=== PATIENT | female | born 1970 | race Caucasian/White ===

== ENCOUNTER 2018-07-26 08:36 | Emergency (ER) | payer BC ==
--- NOTE | 2018-07-26 09:21 | ER Document Report ---
ED General - General Chief Complaint: Breathing Difficulty Stated Complaint: DIFFICULTY BREATHING Time Seen by Provider: 07/26/18 09:03 TRAVEL OUTSIDE OF THE [place] IN LAST 30 DAYS: No - HPI Onset: Other - 6 days Onset/Duration: Gradual, Constant Quality of pain: No pain Associated symptoms: Shortness of breath, Sweating Exacerbated by: Movement, Walking Relieved by: Sitting Similar symptoms previously: No Notes: Patient is a 48-year-old female that presents to the emergency department for chief complaint of diaphoresis and shortness of breath. She reports increased episodes of shortness of breath and sweating over the last 5-6 days. She states when she gets up and walks around even with minimal exertion she begins sweating to the point where she is soaking her hair and clothing. She also feels short of breath. Her symptoms improved quickly with rest. She denies any chest pain but does state when she feels short of breath it feels heaviness in her chest. She has no history of cardiac disease but her father did have an PA in his 50s. Her mother has a history of strokes. She denies any recent surgery, travel, immobilization, personal or family history of blood clots. She has not taken an aspirin today. She has never had a stress test. Past Medical History: Hypertension Past Surgical History: Negative Social History: Denies drugs alcohol and tobacco Family History: Reviewed and noncontributory for presenting illness Allergies: Reviewed, see documented allergy list. REVIEW OF SYSTEMS: CONSTITUTIONAL : No fever No chills diaphoresis No recent illness EENT: No vision changes No congestion No sore throat CARDIOVASCULAR: No chest pain No palpitations RESPIRATORY: shortness of breath No cough No difficulty breathing GASTROINTESTINAL: No abdominal pain No nausea No vomiting No diarrhea GENITOURINARY: No dysuria No hematuria No difficulty urinating MUSCULOSKELETAL: No back pain No leg pain No arm pain SKIN: No rashes No lesions LYMPHATIC: No swollen, enlarged glands. NEUROLOGICAL: No lightheadedness No headache No weakness No paresthesias PSYCHIATRIC: No anxiety No depression PHYSICAL EXAMINATION: Vital signs reviewed, nursing noted reviewed. GENERAL: Diaphoretic, nontoxic, mild distress HEAD: Atraumatic, normocephalic. EYES: Eyes appear normal, extraocular movements intact, sclera anicteric, conjunctiva are normal. ENT: nares patent, oropharynx clear without exudates. Moist mucous membranes. NECK: Normal range of motion, supple without lymphadenopathy LUNGS: Breath sounds clear to auscultation bilaterally and equal. No wheezes rales or rhonchi. HEART: Regular rate and rhythm without murmurs. +2/4 bilateral radial pulses ABDOMEN: Soft, nontender, normoactive bowel sounds. No rebound, guarding, or rigidity. No masses appreciated. EXTREMITIES: Nontender, good range of motion, no pitting or edema. NEUROLOGICAL: No focal neurological deficits. Moves all extremities spontaneously Motor and sensory grossly intact on exam. PSYCH: Tearful, normal affect. SKIN: Warm, Dry, normal turgor, no rashes or lesions noted on exposed skin - Related Data Allergies/Adverse Reactions: No Known Allergies Allergy (Verified 07/26/18 08:38) Past Medical History - Social History Smoking Status: Never Smoker Chew tobacco use (# tins/day): No Frequency of alcohol use: None Drug Abuse: None Family History: Other - Kidney stone Patient has suicidal ideation: No Patient has homicidal ideation: No - Past Medical History Cardiac Medical History: Reports: Hx Hypertension Pulmonary Medical History: Reports: Hx Pneumonia Renal/ Medical History: Denies: Hx Peritoneal Dialysis Psychiatric Medical History: Reports: Hx Anxiety, Hx Depression - anxiety - Immunizations Hx Diphtheria, Pertussis, Tetanus Vaccination: Yes Review of Systems - Review of Systems Notes: Dictated Physical Exam - Vital signs Vitals: Temp Pulse Resp BP Pulse Ox 98.0 F 93 20 150/95 H 99 07/26/18 08:42 07/26/18 08:42 07/26/18 08:42 07/26/18 08:42 07/26/18 08:42 - Notes Notes: Dictated Course - Re-evaluation Re-evalutation: 07/26/18 09:20 Vitals reviewed. Nursing notes reviewed. Patient is tearful in the room and states it is because she is sleep deprived and is scared that something may be going on. She denies any pain currently. 07/26/18 12:12 Patient reevaluated. She is no longer diaphoretic. She is resting comfortably and asymptomatic. Her EKG shows no acute ischemia or dysrhythmia. Patient's d- dimer was elevated however CT angios shows no pulmonary embolism or aortic dissection. The remainder of her workup including her troponin is negative. Patient did not have any chest pain but her symptoms were concerning for anginal equivalent. I did offer patient a delta troponin which she has declined. She understands the symptoms she is having may be related to strain on her heart and she will follow with her primary care doctor in the office in the next 1-2 days. I advised her to get a stress test done in the next week. She will return for any new or worsening symptoms. Discharged home in stable condition. Laboratory 07/26/18 07/26/18 07/26/18 09:46 09:46 09:46 WBC 6.6 RBC 5.35 H Hgb 15.5 Hct 45.1 MCV 84 MCH 29.0 MCHC 34.5 RDW 13.6 Plt Count 444 Seg Neutrophils % 51.9 Lymphocytes % 33.6 Monocytes % 11.0 Eosinophils % 2.7 Basophils % 0.8 Absolute Neutrophils 3.4 Absolute Lymphocytes 2.2 Absolute Monocytes 0.7 Absolute Eosinophils 0.2 Absolute Basophils 0.1 D-Dimer 0.53 H Sodium Cancelled Potassium Cancelled Chloride Cancelled Carbon Dioxide Cancelled Anion Gap Cancelled BUN Cancelled Creatinine Cancelled Est GFR ( Amer) Cancelled Est GFR (Non-Af Amer) Cancelled Glucose Cancelled Calcium Cancelled Troponin I 07/26/18 07/26/18 07/26/18 09:46 10:43 10:43 WBC RBC Hgb Hct MCV MCH MCHC RDW Plt Count Seg Neutrophils % Lymphocytes % Monocytes % Eosinophils % Basophils % Absolute Neutrophils Absolute Lymphocytes Absolute Monocytes Absolute Eosinophils Absolute Basophils D-Dimer Sodium 142.9 Potassium 4.2 Chloride 101 Carbon Dioxide 32 H Anion Gap 10 BUN 14 Creatinine 0.76 Est GFR ( Amer) > 60 Est GFR (Non-Af Amer) > 60 Glucose 98 Calcium 9.4 Troponin I Cancelled < 0.012 Chest X-Ray 07/26/18 09:17 IMPRESSION: NO ACUTE RADIOGRAPHIC FINDING IN THE CHEST. Chest/Abdomen CTA 07/26/18 10:35 IMPRESSION: NORMAL CTA OF THE CHEST. NO PULMONARY EMBOLI. - Vital Signs Vital signs: Temp Pulse Resp BP Pulse Ox 98.0 F 93 20 150/95 H 99 07/26/18 08:42 07/26/18 08:42 07/26/18 08:42 07/26/18 08:42 07/26/18 08:42 - Laboratory Result Diagrams: 07/26/18 09:46 07/26/18 10:43 Laboratory results interpreted by me: 07/26/18 07/26/18 07/26/18 09:46 09:46 10:43 RBC 5.35 H D-Dimer 0.53 H Carbon Dioxide 32 H - EKG Interpretation by Me Additional EKG results interpreted by me: 07/26/18 10:13 Interpreted by myself 0 924: Normal sinus rhythm, rate 85, normal axis, no ectopy, no ST elevation, diffuse T wave flattening with T wave inversion lead III Discharge - Discharge Clinical Impression: Shortness of breath, Diaphoresis Condition: Stable Disposition: HOME, SELF-CARE Instructions: Chest Pain of Unclear Cause ([facility]) Additional Instructions: Please return to the emergency department if you have any worsening, or concern of your symptoms. Please return to the emergency department if you develop chest pain, difficulty breathing, severe abdominal pain, or ongoing vomiting. Please follow-up with your primary care physician in 1-2 days and any other recommended physicians. If prescribed, take all medications as directed. If you have any questions or concerns do not hesitate to return the emergency department for evaluation. See your primary care doctor in the next 1-2 days and ask for a stress test. Return to the emergency room at any time for reevaluation Referrals: TOBY HELM MD [Primary Care Provider] - Follow up in 3-5 days
--- NOTE | 2018-07-26 10:07 | RADIOLOGY REPORT (SQ) ---
EXAM DESCRIPTION: CHEST SINGLE VIEW COMPLETED DATE/TIME: 07/26/2018 9:49 am REASON FOR STUDY: cough COMPARISON: December 2015 EXAM PARAMETERS: NUMBER OF VIEWS: One view. TECHNIQUE: Single frontal radiographic view of the chest acquired. RADIATION DOSE: NA LIMITATIONS: None. FINDINGS: LUNGS AND PLEURA: No opacities, masses or pneumothorax. No pleural effusion. MEDIASTINUM AND HILAR STRUCTURES: No masses. Contour normal. HEART AND VASCULAR STRUCTURES: Heart normal in size. Normal vasculature. BONES: No acute findings. HARDWARE: None in the chest. OTHER: No other significant finding. IMPRESSION: NO ACUTE RADIOGRAPHIC FINDING IN THE CHEST. TECHNICAL DOCUMENTATION: JOB ID: [id number] [employer]- All Rights Reserved Reading location - IP/workstation name: [email or web address]
[2018-07-26 10:12] LABS: ABSOLUTE BASOPHILS # (AUTO) 0.1 10^3/uL (0.0-0.2); ABSOLUTE EOSINOPHILS # (AUTO) 0.2 10^3/uL (0.0-0.6); ABSOLUTE LYMPHOCYTES (AUTO) 2.2 10^3/uL (0.5-4.7); ABSOLUTE MONOCYTES (AUTO) 0.7 10^3/uL (0.1-1.4); ABSOLUTE NEUT (AUTO) 3.4 10^3/uL (1.7-8.2); BASOPHILS % (AUTO) 0.8 % (0-2); EOSINOPHILS % (AUTO) 2.7 % (0-6); HEMATOCRIT 45.1 % (36.0-47.0); HEMOGLOBIN 15.5 g/dL (12.0-15.5); LYMPHOCYTES % (AUTO) 33.6 % (13-45); MEAN CORPUSCULAR HGB CONC 34.5 g/dL (32.0-36.0); MEAN CORPUSCULAR VOLUME 84 fl (80-97); PLATELET COUNT 444 10^3/uL (150-450); RED BLOOD COUNT 5.35 10^6/uL (3.72-5.28); RED CELL DISTRIBUTION WIDTH 13.6 % (11.5-14.0); SEGMENTED NEUTROPHILS % (AUTO) 51.9 % (42-78); TOTAL CELLS COUNTED % (AUTO) 100 %; WHITE BLOOD COUNT 6.6 10^3/uL (4.0-10.5)
[2018-07-26 11:23] LABS: ANION GAP 10 (5-19); BLOOD UREA NITROGEN 14 mg/dL (7-20); CALCIUM 9.4 mg/dL (8.4-10.2); CARBON DIOXIDE 32 mmol/L (22-30); CHLORIDE 101 mmol/L (98-107); GLUCOSE 98 mg/dL (75-110); POTASSIUM 4.2 mmol/L (3.6-5.0); SODIUM 142.9 mmol/L (137-145)
--- NOTE | 2018-07-26 11:58 | RADIOLOGY REPORT (SQ) ---
EXAM DESCRIPTION: CTA CHEST COMPLETED DATE/TIME: 07/26/2018 11:43 am REASON FOR STUDY: PE study COMPARISON: Chest x-ray done earlier the same day. TECHNIQUE: CT scan of the chest performed using helical scanning technique with dynamic intravenous contrast injection. Images reviewed with lung, soft tissue and bone windows. Reconstructed coronal and sagittal MPR images reviewed. Additional 3 dimensional post-processing performed to develop Maximal Intensity Projection images (NM P). All images stored on PACS. All CT scanners at this facility use dose modulation, iterative reconstruction, and/or weight based d osing when appropriate to reduce radiation dose to as low as reasonably achievable (ALARA). [facility]: Dose Right [facility]: CareDose [facility]: Dose Right [facility]: Teradose 4D [facility]: [place] CONTRAST TYPE AND DOSE: contrast/concentration: Isovue 350.00 mg/ml; Total Contrast Delivered: 79.0 ml; Total Saline Delivered: 90.0 ml Contrast bolus optimized for the pulmonary arteries. Not diagnostic for the aorta. RENAL FUNCTION: BUN 14, creatinine 0.76 RADIATION DOSE: CT Rad equipment meets quality standard of care and radiation dose reduction techniq ues were employed. CTDIvol: 16.5 - 19.3 mGy. DLP: 705 mGy-cm. . LIMITATIONS: None. FINDINGS: LUNGS AND PLEURA: No masses, infiltrates, or pneumothorax. No pleural effusions or pleura l calcifications. AORTA AND GREAT VESSELS: No aneurysm. Contrast bolus not optimized for the aorta. HEART: No pericardial effusion. No significant coronary artery calcifications. PULMONARY ARTERIES: No emboli visualized in the main pulmonary arteries or the segmental branches. HILAR AND MEDIASTINAL STRUCTURES: No identified masses or abnormal nodes. HARDWARE: None in the chest. UPPER ABDOMEN: No significant findings. Limited exam. THYROID AND OTHER SOFT TISSUES: No masses. No adenopathy. BONES: No acute or significant finding. 3D MIPS: Confirm above findings. OTHER: No other significant finding. IMPRESSION: NORMAL CTA OF THE CHEST. NO PULMONARY EMBOLI. COMMENT: Quality ID # [id number]: Final reports with documentation of one or more dose reduction techniques (e.g., Automated exposure control, adjustment of the mA and/or kV according to patient size, use of iterative reconstruction technique) TECHNICAL DOCUMENTATION: JOB ID: [id number] [employer]- All Rights Reserved Reading location - IP/workstation name: [email or web address]
[2018-07-26 12:22] VITALS: BP 121/86
--- NOTE | 2018-07-26 13:22 | EKG REPORT ---
SEVERITY:- BORDERLINE ECG - SINUS RHYTHM BORDERLINE T ABNORMALITIES, INFERIOR LEADS : Confirmed by: Julio Cesar Parham MD 26-Jul-2018 13:21:37
== END 2018-07-26 12:22 | disposition home or self-care (01) ==
LOC: ER 08:36
DX: R06.02 Shortness of breath (principal); R61 Generalized hyperhidrosis; R09.89 Other specified symptoms and signs involving the circulatory and respiratory systems; I10 Essential (primary) hypertension; Z82.49 Family history of ischemic heart disease and other diseases of the circulatory system; Z82.3 Family history of stroke
CPT/HCPCS: 36415; 71045; 71275; 80048; 84484; 85025; 85379; 93005; 93010; 99285

== ENCOUNTER 2018-12-17 13:54 | Emergency (ER) | payer BC ==
--- NOTE | 2018-12-17 14:07 | ER Document Report ---
ED Medical Screen (RME) - General Chief Complaint: Flank Pain Stated Complaint: FLANK PAIN Time Seen by Provider: 12/17/18 14:05 Primary Care Provider: TOBY HELM MD [Primary Care Provider] - Follow up as needed Mode of Arrival: Ambulatory Information source: Patient TRAVEL OUTSIDE OF THE [place] IN LAST 30 DAYS: No - HPI Patient complains to provider of: R abd pain Onset: Yesterday - pt with onset of RUQ abd pain for the past 1-2 days. Worse today. - Related Data Allergies/Adverse Reactions: No Known Allergies Allergy (Verified 12/17/18 13:57) Past Medical History - Past Medical History Cardiac Medical History: Reports: Hx Hypertension Pulmonary Medical History: Reports: Hx Pneumonia Renal/ Medical History: Denies: Hx Peritoneal Dialysis Psychiatric Medical History: Reports: Hx Anxiety, Hx Depression - anxiety - Immunizations Hx Diphtheria, Pertussis, Tetanus Vaccination: Yes Physical Exam - Vital signs Vitals: Temp Pulse Resp BP Pulse Ox 98.4 F 83 16 158/104 H 95 12/17/18 13:59 12/17/18 13:59 12/17/18 13:59 12/17/18 13:59 12/17/18 13:59 Course - Vital Signs Vital signs: Temp Pulse Resp BP Pulse Ox 98.4 F 83 16 158/104 H 95 12/17/18 13:59 12/17/18 13:59 12/17/18 13:59 12/17/18 13:59 12/17/18 13:59 Doctor's Discharge - Discharge Referrals: TOBY HELM MD [Primary Care Provider] - Follow up as needed
[2018-12-17 14:44] LABS: ABSOLUTE BASOPHILS # (AUTO) 0.1 10^3/uL (0.0-0.2); ABSOLUTE EOSINOPHILS # (AUTO) 0.2 10^3/uL (0.0-0.6); ABSOLUTE LYMPHOCYTES (AUTO) 2.3 10^3/uL (0.5-4.7); ABSOLUTE MONOCYTES (AUTO) 0.7 10^3/uL (0.1-1.4); ABSOLUTE NEUT (AUTO) 4.8 10^3/uL (1.7-8.2); BASOPHILS % (AUTO) 0.7 % (0-2); EOSINOPHILS % (AUTO) 2.4 % (0-6); HEMATOCRIT 44.8 % (36.0-47.0); HEMOGLOBIN 15.1 g/dL (12.0-15.5); LYMPHOCYTES % (AUTO) 28.6 % (13-45); MEAN CORPUSCULAR HEMOGLOBIN 28.1 pg (27.0-33.4); MEAN CORPUSCULAR HGB CONC 33.8 g/dL (32.0-36.0); MEAN CORPUSCULAR VOLUME 83 fl (80-97); MONOCYTES % (AUTO) 8.3 % (3-13); PLATELET COUNT 372 10^3/uL (150-450); RED BLOOD COUNT 5.39 10^6/uL (3.72-5.28); RED CELL DISTRIBUTION WIDTH 13.8 % (11.5-14.0); TOTAL CELLS COUNTED % (AUTO) 100 %
[2018-12-17 14:53] LABS: APPEARANCE,URINE SLIGHTLY-CLOUDY; BILIRUBIN,URINE NEGATIVE (NEGATIVE); COLOR,URINE YELLOW; GLUCOSE, URINE NEGATIVE (NEGATIVE); KETONES,URINE NEGATIVE (NEGATIVE); LEUKOCYTE ESTERASE,URINE TRACE (NEGATIVE); NITRITE,URINE NEGATIVE (NEGATIVE); PROTEIN,URINE 100 mg/dL (NEGATIVE); URINE SPECIFIC GRAVITY 1.023; UROBILINOGEN,URINE NEGATIVE mg/dL (<2.0)
[2018-12-17 15:07] LABS: ALANINE AMINOTRANSFERASE 53 U/L (9-52); ALKALINE PHOSPHATASE 86 U/L (38-126); ANION GAP 8 (5-19); ASPARTATE AMINO TRANSFERASE 34 U/L (14-36); BILIRUBIN,DIRECT 0.3 mg/dL (0.0-0.4); BILIRUBIN,TOTAL 0.6 mg/dL (0.2-1.3); BLOOD UREA NITROGEN 12 mg/dL (7-20); CALCIUM 9.2 mg/dL (8.4-10.2); CARBON DIOXIDE 29 mmol/L (22-30); CHLORIDE 101 mmol/L (98-107); GLUCOSE 87 mg/dL (75-110); LIPASE 78.8 U/L (23-300); POTASSIUM 3.9 mmol/L (3.6-5.0); SODIUM 138.4 mmol/L (137-145); TOTAL PROTEIN 7.8 g/dL (6.3-8.2)
--- NOTE | 2018-12-17 15:41 | RADIOLOGY REPORT (SQ) ---
EXAM DESCRIPTION: U/S ABDOMEN LTD W/DOPPLER COMPLETED DATE/TIME: 12/17/2018 3:00 pm REASON FOR STUDY: RUQ pain COMPARISON: CT angio chest 07/26/2018 Hepatobiliary scan with CCK 12/07/2007 TECHNIQUE: Dynamic and static grayscale images acquired of the abdomen and recorded on PACS. Additio nal selected color Doppler and spectral images recorded. LIMITATIONS: Midline bowel gas, body habitus, fatty liver FINDINGS: PANCREAS: Not well seen LIVER: Normal size with diffuse increased echogenicity from fatty infiltration. Liver difficult to p enetrate with the ultrasound energy. LIVER VASCULATURE: Normal directional flow of the main portal vein and hepatic veins. GALLBLADDER: No stones. Normal wall thickness. No pericholecystic fluid. ULTRASOUND-DETECTED HAWKINS'S SIGN: Negative. INTRAHEPATIC DUCTS AND COMMON DUCT: CBD and intrahepatic ducts normal caliber. No filling defects. INFERIOR VENA CAVA: Not well seen AORTA: No aneurysm. RIGHT KIDNEY: Normal size. Normal echogenicity. No solid or suspicious masses. No hydronephrosis. No calcifications. PERITONEAL AND RIGHT PLEURAL SPACE: No ascites or effusions. OTHER: No other significant findings. IMPRESSION: Fatty liver. No gallstones, gallbladder wall thickening or pericholecystic fluid TECHNICAL DOCUMENTATION: JOB ID: [id number] [employer]- All Rights Reserved Reading location - IP/workstation name: [email or web address]
--- NOTE | 2018-12-17 17:46 | RADIOLOGY REPORT (SQ) ---
EXAM DESCRIPTION: CT ABD/PELVIS NO ORAL OR IV COMPLETED DATE/TIME: 12/17/2018 5:19 pm REASON FOR STUDY: Hematuria with right abdominal pain COMPARISON: None. TECHNIQUE: CT scan of the abdomen and pelvis performed without intravenous or oral contrast. Images reviewed with lung, soft tissue, and bone windows. Reconstructed coronal and sagittal MPR images revi ewed. All images stored on PACS. All CT scanners at this facility use dose modulation, iterative reconstruction, and/or weight based d osing when appropriate to reduce radiation dose to as low as reasonably achievable (ALARA). [facility]: Dose Right [facility]: CareDose [facility]: Dose Right [facility]: Teradose 4D [facility]: Smart [employer] RADIATION DOSE: CT Rad equipment meets quality standard of care and radiation dose reduction techniq ues were employed. CTDIvol: 16.0 mGy. DLP: 896 mGy-cm.mGy. LIMITATIONS: None. FINDINGS: LOWER CHEST: No significant findings. No nodules or infiltrates. NON-CONTRASTED LIVER, SPLEEN, ADRENALS: Evaluation limited by lack of IV contrast. No identified sign ificant masses. PANCREAS: No masses. No peripancreatic inflammatory changes. GALLBLADDER: No identified stones by CT criteria. No inflammatory changes to suggest cholecystitis. RIGHT KIDNEY AND URETER: No suspicious masses. Assessment limited by lack of IV contrast. Small tab yceal calculi. 9 mm calculus in the renal pelvis. No hydronephrosis or hydroureter. LEFT KIDNEY AND URETER: No suspicious masses. Assessment limited by lack of IV contrast. Small isha ceal calculi. Calculi in the renal pelvis measuring 4 mm and 6 mm. No hydronephrosis or hydrourete r. AORTA AND RETROPERITONEUM: No aneurysm. No retroperitoneal masses or adenopathy. BOWEL AND PERITONEAL CAVITY: No obvious masses or inflammatory changes. No free fluid. APPENDIX: Normal. PELVIS, BLADDER, AND ABDOMINAL WALL:No abnormal masses. 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 No free fluid. Bladder normal. BONES: No significant findings. OTHER: No other significant finding. IMPRESSION: 1. NONOBSTRUCTING CALYCEAL CALCULI IN BOTH KIDNEYS. CALCULI IN THE RENAL PELVIS OF BOTH KIDNEYS. NO URETERAL CALCULI. NO HYDRONEPHROSIS OR HYDROURETER. 2. 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 3. NO OTHER SIGNIFICANT OR ACUTE PROCESS IN THE ABDOMEN OR PELVIS. COMMENT: Quality ID # [id number]: Final reports with documentation of one or more dose reduction techniques (e.g., Automated exposure control, adjustment of the mA and/or kV according to patient size, use of iterative reconstruction technique) TECHNICAL DOCUMENTATION: JOB ID: [id number] [employer]- All Rights Reserved Reading location - IP/workstation name: [email or web address]
[2018-12-17 18:28] VITALS: BP 168/95
--- NOTE | 2018-12-17 18:33 | ER Document Report ---
Entered by NICOLASA MCKEON SCRIBE 12/17/18 [id number] Acting as scribe for:JOSSELIN GUZMAN MD ED General - General Chief Complaint: Flank Pain Stated Complaint: FLANK PAIN Time Seen by Provider: 12/17/18 14:05 Primary Care Provider: [facility] [Provider Group] - Follow up in 3-5 days (Call tomorrow morning to schedule an appointment this week.) TOBY HELM MD [Primary Care Provider] - Follow up as needed Mode of Arrival: Ambulatory Information source: Patient Notes: Patient is a 48 year old female complaining of right upper quadrant pain onset 2 days ago. Patient states the pain has worsened today. She states she has been taking 800mg of Motrin to help ease her abdominal pain. Patient states denies a history of kidney stones or hormone use. Patient's LMP was approximately 5 months ago. She is currently prescribed Ambien and Metoprolol. TRAVEL OUTSIDE OF THE [place] IN LAST 30 DAYS: No - Related Data Allergies/Adverse Reactions: No Known Allergies Allergy (Verified 12/17/18 13:57) Past Medical History - General Information source: Patient - Social History Smoking Status: Never Smoker Family History: Other - Kidney stone Patient has suicidal ideation: No Patient has homicidal ideation: No - Past Medical History Cardiac Medical History: Reports: Hx Hypertension Pulmonary Medical History: Reports: Hx Pneumonia Psychiatric Medical History: Reports: Hx Anxiety, Hx Depression - anxiety - Immunizations Hx Diphtheria, Pertussis, Tetanus Vaccination: Yes Review of Systems - Review of Systems Constitutional: No symptoms reported EENT: No symptoms reported Cardiovascular: No symptoms reported Respiratory: No symptoms reported Gastrointestinal: See HPI, Abdominal pain Genitourinary: No symptoms reported Female Genitourinary: No symptoms reported Musculoskeletal: No symptoms reported Skin: No symptoms reported Hematologic/Lymphatic: No symptoms reported Neurological/Psychological: No symptoms reported -: Yes All other systems reviewed and negative Physical Exam - Vital signs Vitals: Temp Pulse Resp BP Pulse Ox 98.4 F 83 16 158/104 H 95 12/17/18 13:59 12/17/18 13:59 12/17/18 13:59 12/17/18 13:59 12/17/18 13:59 - Notes Notes: GENERAL: Alert, interacts well. No acute distress. HEAD: Normocephalic, atraumatic. EYES: Pupils equal, round, and reactive to light. Extraocular movements intact. ENT: Oral mucosa moist, tongue midline. NECK: Full range of motion. Supple. Trachea midline. LUNGS: Clear to auscultation bilaterally, no wheezes, rales, or rhonchi. No respiratory distress. HEART: Regular rate and rhythm. No murmurs, gallops, or rubs. ABDOMEN: Soft, Left lateral tenderness to palpation, describes as a pressure during palpation. Non-distended. Bowel sounds present in all 4 quadrants. No guarding, rigidity, or rebound. EXTREMITIES: Moves all 4 extremities spontaneously. NEUROLOGICAL: Alert and oriented x3. Normal speech. PSYCH: Normal affect, normal mood. SKIN: Warm, dry, normal turgor. No rashes or lesions noted. BACK: No CVA tenderness to percussion Course - Re-evaluation Re-evalutation: 12/17/18 18:27 The patient's blood pressure was recorded at 154/103 at triage. She has had pressures recorded at high as far back as 2015. She has also had a visit last July where she came in with a pressure-like that and later the pressure was in the 120s. I do not think that blood pressure needs to be addressed as she was uncomfortable when she arrived. She will be following up with her primary care provider and a urologist in the coming week. - Vital Signs Vital signs: Temp Pulse Resp BP Pulse Ox 98.4 F 83 16 158/104 H 95 12/17/18 13:59 12/17/18 13:59 12/17/18 13:59 12/17/18 13:59 12/17/18 13:59 - Laboratory Result Diagrams: 12/17/18 14:27 12/17/18 14:27 Laboratory results interpreted by me: 12/17/18 12/17/18 12/17/18 14:27 14:27 14:27 RBC 5.39 H ALT 53 H Urine Protein 100 H Urine Blood LARGE H Ur Leukocyte Esterase TRACE H - Diagnostic Test Radiology reviewed: Image reviewed, Reports reviewed - Gallbladder ultrasound is unremarkable. CT renal stone protocol shows bilateral renal stones with a 9 mm stone in the right renal pelvis and a smaller stones in the left renal pelvic region. There is no hydronephrosis or hydroureter, there are no ureteral stones. Discharge - Discharge Clinical Impression: Right upper quadrant abdominal pain, Renal calculi Hematuria Qualifiers: Hematuria type: unspecified type Qualified Code(s): R31.9 - Hematuria, unspecified Condition: Stable Disposition: HOME, SELF-CARE Additional Instructions: There is no clear explanation for the discomfort you have been feeling in the right upper quadrant of your abdomen and going toward the right flank region. It is most likely due to a kidney stone, as you have considerable blood in urine, and a rather large stone in the right renal pelvis. At this time though the stones are not obstructing and should not be causing ongoing discomfort unless they move into the ureter and start causing an obstruction. Take the pain medication only if needed, when Tylenol or Motrin does not help. Drink lots of fluids throughout the day in the evening, do this every day, forever to help reduce the frequency of kidney stones. Call [facility] urology in the morning to schedule an appointment for this week. RETURN TO THE EMERGENCY ROOM IF ANY NEW OR WORSENING SYMPTOMS. Prescriptions: Oxycodone HCl/Acetaminophen [Percocet 5-325 mg Tablet] 1 tab PO ASDIR PRN #12 tablet PRN Reason: Referrals: TOBY HELM MD [Primary Care Provider] - Follow up as needed [facility] [Provider Group] - Follow up in 3-5 days (Call tomorrow morning to schedule an appointment this week.) Scribe Attestation: 12/17/18 17:25 I personally performed the services described in the documentation, reviewed and edited the documentation which was dictated to the scribe in my presence, and it accurately records my words and actions. I personally performed the services described in the documentation, reviewed and edited the documentation which was dictated to the scribe in my presence, and it accurately records my words and actions.
== END 2018-12-17 18:46 | disposition home or self-care (01) ==
LOC: ER 13:54
DX: N20.0 Calculus of kidney (principal); R31.9 Hematuria, unspecified; R10.11 Right upper quadrant pain; Z79.899 Other long term (current) drug therapy; I10 Essential (primary) hypertension
CPT/HCPCS: 36415; 74176; 76705; 80053; 81001; 83690; 85025; 93976; 99284

== ENCOUNTER 2019-01-24 11:27 | Emergency (ER) | payer BC ==
--- NOTE | 2019-01-24 12:00 | ER Document Report ---
ED Medical Screen (RME) - General Chief Complaint: Urinary Problem Stated Complaint: PAINFUL URINATION Time Seen by Provider: 01/24/19 11:52 Primary Care Provider: TOBY HELM MD [Primary Care Provider] - Follow up as needed Mode of Arrival: Ambulatory Information source: Patient Notes: Patient presents to the emergency department with complaints of difficulty voiding. She reports she had lithotripsy on Tuesday. Her urologist dr tom sent here here for a bladder residual. She denies other symptoms such as fever vomiting diarrhea. Reports that she has been drinking lots of fluid she feels like she has to void but when she attempts to void very little results. I have greeted and performed a rapid initial assessment of this patient. A comprehensive ED assessment and evaluation of the patient, analysis of test results and completion of the medical decision making process will be conducted by additional ED providers. Dictation of this chart was performed using voice recognition software; therefore, there may be some unintended grammatical errors. TRAVEL OUTSIDE OF THE [place] IN LAST 30 DAYS: No - Related Data Allergies/Adverse Reactions: No Known Allergies Allergy (Verified 01/24/19 11:28) Past Medical History - Past Medical History Cardiac Medical History: Reports: Hx Hypertension Pulmonary Medical History: Reports: Hx Pneumonia Renal/ Medical History: Denies: Hx Peritoneal Dialysis Psychiatric Medical History: Reports: Hx Anxiety, Hx Depression - anxiety - Immunizations Hx Diphtheria, Pertussis, Tetanus Vaccination: Yes Physical Exam - Vital signs Vitals: Temp Pulse Resp BP 97.7 F 85 18 145/87 H 01/24/19 11:34 01/24/19 11:34 01/24/19 11:34 01/24/19 11:34 Course - Vital Signs Vital signs: Temp Pulse Resp BP Pulse Ox 97.7 F 85 18 145/87 H 01/24/19 11:34 01/24/19 11:34 01/24/19 11:34 01/24/19 11:34 Doctor's Discharge - Discharge Referrals: TOBY HELM MD [Primary Care Provider] - Follow up as needed
[2019-01-24 13:46] LABS: APPEARANCE,URINE SLIGHTLY-CLOUDY; BILIRUBIN,URINE NEGATIVE (NEGATIVE); COLOR,URINE YELLOW; GLUCOSE, URINE NEGATIVE (NEGATIVE); KETONES,URINE NEGATIVE (NEGATIVE); LEUKOCYTE ESTERASE,URINE MODERATE (NEGATIVE); NITRITE,URINE NEGATIVE (NEGATIVE); PROTEIN,URINE 30 mg/dL (NEGATIVE); URINE SPECIFIC GRAVITY 1.013; UROBILINOGEN,URINE NEGATIVE mg/dL (<2.0)
[2019-01-24] MEDS ORDERED: TAMSULOSIN HCL 0.4 MG CAP.SR.24H PO ONE (13:58)
--- NOTE | 2019-01-24 14:00 | ER Document Report ---
ED General - General Chief Complaint: Urinary Problem Stated Complaint: PAINFUL URINATION Time Seen by Provider: 01/24/19 11:52 Primary Care Provider: TOBY HELM MD [Primary Care Provider] - Follow up as needed Mode of Arrival: Ambulatory Information source: Patient Notes: Patient presents to the emergency department with complaints of difficulty voiding. She reports she had lithotripsy on Tuesday. Her urologist dr tom sent here here for a bladder residual. She denies other symptoms such as fever vomiting diarrhea. Reports that she has been drinking lots of fluid she feels like she has to void but when she attempts to void very little results. TRAVEL OUTSIDE OF THE [place] IN LAST 30 DAYS: No - HPI Onset: Other Onset/Duration: Persistent Quality of pain: Fullness, Pressure Severity: Severe Pain Level: 5 Associated symptoms: None Exacerbated by: Denies Relieved by: Denies Similar symptoms previously: Yes Recently seen / treated by doctor: Yes - Related Data Allergies/Adverse Reactions: No Known Allergies Allergy (Verified 01/24/19 11:28) Past Medical History - General Information source: Patient - Social History Smoking Status: Never Smoker Chew tobacco use (# tins/day): No Drug Abuse: None Family History: Other - Kidney stone Patient has suicidal ideation: No Patient has homicidal ideation: No - Past Medical History Cardiac Medical History: Reports: Hx Hypertension Pulmonary Medical History: Reports: Hx Pneumonia Renal/ Medical History: Reports: Hx Kidney Stones. Denies: Hx Peritoneal Dialysis Psychiatric Medical History: Reports: Hx Anxiety, Hx Depression - anxiety Past Surgical History: Reports: Hx Kidney (Renal Surgery) - lithotripsy - Immunizations Hx Diphtheria, Pertussis, Tetanus Vaccination: Yes Review of Systems - Review of Systems Notes: Review HPI for review of systems., All other systems negative Physical Exam - Vital signs Vitals: Temp Pulse Resp BP 97.7 F 85 18 145/87 H 01/24/19 11:34 01/24/19 11:34 01/24/19 11:34 01/24/19 11:34 - Notes Notes: PHYSICAL EXAMINATION: GENERAL: nontoxic looking in no acute distress HEAD: Atraumatic, normocephalic. EYES: Pupils equal round extraocular movements intact, sclera anicteric, conjunctiva are normal. ENT: nares patent, . Moist mucous membranes. NECK: Normal range of motion, supple LUNGS: CTAB and equal. No wheezes rales or rhonchi. HEART: Regular rate and rhythm without murmurs ABDOMEN: Soft, no tenderness. No guarding, no rebound BACK: Denies pain EXTREMITIES: Normal range of motion, no pitting edema. NEUROLOGICAL: Cranial nerves grossly intact. Normal sensory/motor exams. PSYCH: Normal mood, normal affect. SKIN: Warm, Dry, normal turgor, Course - Re-evaluation Re-evalutation: 01/24/19 14:57 Bladder scan completed 200 mils noted Baptiste inserted 175 mils of urine obtained. Patient reports she feels much better Patient was instructed on Flomax. Instructed to continue her antibiotics which she has 3 days left. Patient was also instructed on the KUB and importance of follow-up with Dr. Tom tomorrow. She is feeling much better verbalized understanding to all instructions. - Vital Signs Vital signs: Temp Pulse Resp BP Pulse Ox 98 F 90 18 141/91 H 100 01/24/19 15:08 01/24/19 15:08 01/24/19 15:08 01/24/19 15:08 01/24/19 15:08 - Laboratory Laboratory results interpreted by me: 01/24/19 13:10 Urine Protein 30 H Urine Blood MODERATE H Ur Leukocyte Esterase MODERATE H Urine Ascorbic Acid 40 H - Diagnostic Test Radiology reviewed: Image reviewed, Reports reviewed - KUB shows no evidence of intra-abdominal pelvic process. Positive left renal stones. Discharge - Discharge Clinical Impression: Dysuria, Urinary retention, Kidney stones Condition: Stable Disposition: HOME, SELF-CARE Instructions: Flomax (OM), Urinary Retention (OM) Additional Instructions: *You have been evaluated for urinary retention, kidney stones *Take medication as prescribed *Push fluids *Follow up with Dr Tom tomorrow *Return to ED for worsening condition, changes, needs, fever, unable to void Monitor your blood pressure. Your blood pressure was elevated today. This may be because you were anxious, in pain or because you need medication. It is important to follow up with your primary care provider for full evaluation. Prescriptions: Tamsulosin HCl [Flomax] 0.4 mg PO DAILY #7 capsule Forms: Elevated Blood Pressure Referrals: TOBY HELM MD [Primary Care Provider] - Follow up as needed
--- NOTE | 2019-01-24 14:36 | RADIOLOGY REPORT (SQ) ---
EXAM DESCRIPTION: KUB/ABDOMEN (SINGLE VIEW) COMPLETED DATE/TIME: 01/24/2019 2:22 pm REASON FOR STUDY: abd pain COMPARISON: 12/17/2018 NUMBER OF VIEWS: One view. TECHNIQUE: Supine radiographic image of the abdomen acquired. LIMITATIONS: None. FINDINGS: BOWEL GAS PATTERN: Normal bowel gas pattern. No dilated loops. CALCIFICATIONS: Calcific densities overlie left kidney compatible with renal stones. Previously-seen right renal stone is not appreciated on this exam. SOFT TISSUES: No gross mass or suggestion of organomegaly. HARDWARE: None in the abdomen. BONES: No acute fracture. No worrisome bone lesions. OTHER: No other significant finding. IMPRESSION: No evidence of acute intra-abdominal/pelvic process. Left renal stones. TECHNICAL DOCUMENTATION: JOB ID: [id number] [employer]- All Rights Reserved Reading location - IP/workstation name: [email or web address]
[2019-01-24 15:08] VITALS: BP 141/91
== END 2019-01-24 12:30 | disposition home or self-care (01) ==
LOC: ER 11:27
DX: R33.9 Retention of urine, unspecified (principal); N20.0 Calculus of kidney; R30.0 Dysuria; I10 Essential (primary) hypertension; Z98.890 Other specified postprocedural states
CPT/HCPCS: 51702; 74018; 81001; 87086; 99283

== ENCOUNTER 2019-07-13 20:32 | Emergency (ER) | payer BC ==
[2019-07-13] MEDS ORDERED: NORMAL SALINE 1000 ML 1,000 ML IV ONE (21:05)
[2019-07-13] MEDS ORDERED: ONDANSETRON HCL INJ/PF 4 MG/2 ML SDV IV ONE (21:05)
[2019-07-13] MEDS ORDERED: KETOROLAC TROMETHAMINE INJ/PF 30 MG/1 ML SDV IV ONE (21:05)
[2019-07-13] MEDS ORDERED: FENTANYL CITRATE INJ/PF 100 MCG/2 ML AMPUL IV ONE (21:05)
--- NOTE | 2019-07-13 21:08 | ER Document Report ---
ED Medical Screen (RME) - General Chief Complaint: Possible Kidney Stone Stated Complaint: VOMITING,LEFT SIDE ABDOMINAL PAIN Time Seen by Provider: 07/13/19 20:57 Primary Care Provider: TOBY HEML MD [Primary Care Provider] - Follow up as needed Notes: 49-year-old female with hypertension presents emergency department with left flank pain. Patient has history of kidney stones. Patient denies fevers or chills, complains of intractable nausea vomiting. Exam: Well-appearing in mild distress, left CVAT, lungs clear to auscultation in all toribio, regular cardiac rate and rhythm I have greeted and performed a rapid initial assessment of this patient. A comprehensive ED assessment and evaluation of the patient, analysis of test results and completion of medical decision making process will be conducted by an additional ED providers. TRAVEL OUTSIDE OF THE [place] IN LAST 30 DAYS: No - Related Data Allergies/Adverse Reactions: No Known Allergies Allergy (Verified 07/13/19 20:49) Home Medications: Ambien PRN. Metoprolol Past Medical History - Social History Frequency of alcohol use: None Drug Abuse: None - Past Medical History Cardiac Medical History: Reports: Hx Hypertension Pulmonary Medical History: Reports: Hx Pneumonia Renal/ Medical History: Reports: Hx Kidney Stones. Denies: Hx Peritoneal Dialysis Psychiatric Medical History: Reports: Hx Anxiety, Hx Depression - anxiety Past Surgical History: Reports: Hx Kidney (Renal Surgery) - lithotripsy - Immunizations Hx Diphtheria, Pertussis, Tetanus Vaccination: Yes Physical Exam - Vital signs Vitals: Temp Pulse Resp BP Pulse Ox 98.6 F 98 16 114/60 96 07/13/19 20:37 07/13/19 20:37 07/13/19 20:37 07/13/19 20:37 07/13/19 20:37 Course - Vital Signs Vital signs: Temp Pulse Resp BP Pulse Ox 98.6 F 98 16 114/60 96 07/13/19 20:37 07/13/19 20:37 07/13/19 20:37 07/13/19 20:37 07/13/19 20:37 Doctor's Discharge - Discharge Referrals: TOBY HELM MD [Primary Care Provider] - Follow up as needed
[2019-07-13 21:36] LABS: ABSOLUTE BASOPHILS # (AUTO) 0.1 10^3/uL (0.0-0.2); ABSOLUTE EOSINOPHILS # (AUTO) 0.2 10^3/uL (0.0-0.6); ABSOLUTE MONOCYTES (AUTO) 1.1 10^3/uL (0.1-1.4); ABSOLUTE NEUT (AUTO) 8.8 10^3/uL (1.7-8.2); BASOPHILS % (AUTO) 0.4 % (0-2); EOSINOPHILS % (AUTO) 1.4 % (0-6); HEMATOCRIT 46.1 % (36.0-47.0); HEMOGLOBIN 15.2 g/dL (12.0-15.5); LYMPHOCYTES % (AUTO) 16.3 % (13-45); MEAN CORPUSCULAR HEMOGLOBIN 27.7 pg (27.0-33.4); MEAN CORPUSCULAR HGB CONC 32.9 g/dL (32.0-36.0); MEAN CORPUSCULAR VOLUME 84 fl (80-97); MONOCYTES % (AUTO) 9.4 % (3-13); PLATELET COUNT 419 10^3/uL (150-450); RED BLOOD COUNT 5.49 10^6/uL (3.72-5.28); SEGMENTED NEUTROPHILS % (AUTO) 72.5 % (42-78); TOTAL CELLS COUNTED % (AUTO) 100 %; WHITE BLOOD COUNT 12.1 10^3/uL (4.0-10.5)
[2019-07-13] MEDS ORDERED: HYDROMORPHONE HCL INJ/PF 2 MG/ML AMPULE IV ONE ×2 (21:42→23:47)
[2019-07-13 21:43] LABS: ALBUMIN 4.4 g/dL (3.5-5.0); ALKALINE PHOSPHATASE 93 U/L (38-126); ANION GAP 12 (5-19); ASPARTATE AMINO TRANSFERASE 53 U/L (14-36); BILIRUBIN,DIRECT 0.1 mg/dL (0.0-0.4); BILIRUBIN,TOTAL 0.5 mg/dL (0.2-1.3); BLOOD UREA NITROGEN 16 mg/dL (7-20); CALCIUM 9.7 mg/dL (8.4-10.2); CARBON DIOXIDE 27 mmol/L (22-30); CHLORIDE 99 mmol/L (98-107); GLUCOSE 107 mg/dL (75-110); TOTAL PROTEIN 8.5 g/dL (6.3-8.2)
--- NOTE | 2019-07-13 21:43 | ER Document Report ---
ED GI/ - General Chief Complaint: Possible Kidney Stone Stated Complaint: VOMITING,LEFT SIDE ABDOMINAL PAIN Time Seen by Provider: 07/13/19 20:57 Primary Care Provider: TOBY HELM MD [Primary Care Provider] - Follow up as needed Notes: Patient is a 49-year-old female that comes emergency department for chief complaint of left flank pain radiating around to the left mid to lower abdomen. Symptoms started at about noon suddenly, pain is intermittently very sharp, she has vomited multiple times. She denies any other locations of pain. She does report a history of kidney stones, she follows with [facility], she has had lithotripsy in the past but never stents. She denies fever/chills. She d enies dysuria or hematuria. TRAVEL OUTSIDE OF THE [place] IN LAST 30 DAYS: No - Related Data Allergies/Adverse Reactions: No Known Allergies Allergy (Verified 07/13/19 20:49) Home Medications: Ambien PRN. Metoprolol Past Medical History - General Information source: Patient - Social History Smoking Status: Never Smoker Frequency of alcohol use: None Drug Abuse: None Lives with: Family Family History: Reviewed & Not Pertinent, Other - Kidney stone Patient has suicidal ideation: No Patient has homicidal ideation: No - Past Medical History Cardiac Medical History: Reports: Hx Hypertension Pulmonary Medical History: Reports: Hx Pneumonia Renal/ Medical History: Reports: Hx Kidney Stones. Denies: Hx Peritoneal Dialysis Psychiatric Medical History: Reports: Hx Anxiety, Hx Depression - anxiety Past Surgical History: Reports: Hx Kidney (Renal Surgery) - lithotripsy - Immunizations Hx Diphtheria, Pertussis, Tetanus Vaccination: Yes Review of Systems - Review of Systems Constitutional: No symptoms reported EENT: No symptoms reported Cardiovascular: No symptoms reported Respiratory: No symptoms reported Gastrointestinal: See HPI Genitourinary: See HPI Female Genitourinary: No symptoms reported Musculoskeletal: No symptoms reported Skin: No symptoms reported Hematologic/Lymphatic: No symptoms reported Neurological/Psychological: No symptoms reported Physical Exam - Vital signs Vitals: Temp Pulse Resp BP Pulse Ox 98.6 F 98 16 114/60 96 07/13/19 20:37 07/13/19 20:37 07/13/19 20:37 07/13/19 20:37 07/13/19 20:37 - Notes Notes: GENERAL: Alert, interacts well. Patient appears mildly uncomfortable but is not in severe distress HEAD: Normocephalic, atraumatic. EYES: Pupils equal, round, and reactive to light. Extraocular movements intact. ENT: Oral mucosa moist, tongue midline. Oropharynx unremarkable. Airway patent. LUNGS: Clear to auscultation bilaterally, no wheezes, rales, or rhonchi. No respiratory distress. HEART: Regular rate and rhythm. No murmur ABDOMEN: Mild generalized left-sided abdominal tenderness, no guarding or rigidity GENITOURINARY: Deferred EXTREMITIES: Moves all 4 extremities spontaneously. No edema, normal radial and dorsalis pedis pulses bilaterally. No cyanosis. BACK: Left CVA tenderness which is mild. No cervical, thoracic, lumbar midline tenderness. No saddle anesthesia, normal distal neurovascular exam. Moves all extremities in full range of motion. NEUROLOGICAL: Alert and oriented x3. Normal speech. Cranial nerves II through XII grossly intact. PSYCH: Normal affect, normal mood. SKIN: Warm, dry, normal turgor. No rashes or lesions noted. Course - Re-evaluation Re-evalutation: Initially uncomfortable in appearance, this resolved with medications, on reevaluation she is calm and well-appearing. She does have some left-sided CVA tenderness, ultrasound shows some mild left-sided hydronephrosis, and I do suspect a passing ureterolithiasis. Renal functioning unremarkable, no leukocytosis, no fever. Urinalysis does not show leukocyte esterase or white blood cells but there are some bacteria so after discussion with patient we did place her on prophylactic antibiotics. She already has a urologist that she will follow-up with, I discussed the follow-up, symptom management, and strict r eturn precautions. Patient states appreciation and agreement. Stable at time of discharge. - Vital Signs Vital signs: Temp Pulse Resp BP Pulse Ox 97.9 F 94 16 139/81 H 95 07/14/19 00:33 07/14/19 00:33 07/14/19 00:33 07/14/19 00:33 07/14/19 00:33 - Laboratory Result Diagrams: 07/13/19 21:18 07/13/19 21:18 Laboratory results interpreted by me: 07/13/19 07/13/19 21:18 21:18 WBC 12.1 H RBC 5.49 H Absolute Neuts (auto) 8.8 H Est GFR (MDRD) Non-Af 51 L AST 53 H Total Protein 8.5 H Discharge - Discharge Clinical Impression: Left flank pain Vomiting Qualifiers: Vomiting type: unspecified Vomiting Intractability: non-intractable Nausea presence: with nausea Qualified Code(s): R11.2 - Nausea with vomiting, unspecified Abdominal pain Qualifiers: Abdominal location: lower abdomen, unspecified Qualified Code(s): R10.30 - Lower abdominal pain, unspecified Condition: Stable Disposition: HOME, SELF-CARE Additional Instructions: You have a small amount of swelling over the left kidney, your overall evaluation is consistent with a passing stone in the left ureter. You have some bacteria in the urine as a result we are placing on prophylactic antibiotics, take the pain and nausea medications if needed, medication such as [id number]-[id number] ibuprofen and Benadryl can also help. Drink plenty fluids and rest. Most likely he will pass the stone. Follow-up closely with urology. Return if you worsen in any way including uncontrolled vomiting, severe worsening pain, fever/chills, or any other concerning symptoms. Prescriptions: Cephalexin Monohydrate [Keflex 500 mg Capsule] 500 mg PO BID 7 Days #14 capsule Oxycodone HCl/Acetaminophen [Percocet 5-325 mg Tablet] 1 - 2 tab PO TID PRN #12 tablet PRN Reason: Ondansetron [Zofran Odt 4 mg Tablet] 1 - 2 tab PO Q4H PRN #15 tab.rapdis PRN Reason: For Nausea/Vomiting Referrals: TOBY HELM MD [Primary Care Provider] - Follow up as needed
[2019-07-13 23:10] LABS: APPEARANCE,URINE SLIGHTLY-CLOUDY; BILIRUBIN,URINE NEGATIVE (NEGATIVE); COLOR,URINE YELLOW; GLUCOSE, URINE NEGATIVE (NEGATIVE); KETONES,URINE NEGATIVE (NEGATIVE); LEUKOCYTE ESTERASE,URINE NEGATIVE (NEGATIVE); NITRITE,URINE NEGATIVE (NEGATIVE); PROTEIN,URINE NEGATIVE (NEGATIVE); URINE SPECIFIC GRAVITY 1.018; UROBILINOGEN,URINE NEGATIVE mg/dL (<2.0)
--- NOTE | 2019-07-13 23:37 | RADIOLOGY REPORT (SQ) ---
EXAM DESCRIPTION: [facility]: US RETROPERITONEUM CLINICAL HISTORY: 49 years Female; L flank pain, hx kidney stones TECHNIQUE: Bilateral renal ultrasound was performed. COMPARISON: 12/17/2018 FINDINGS: Visualized portions of IVC and aorta are unremarkable. Right kidney: 11.6 x 5.6 x 5.2 cm. No hydronephrosis or shadowing calculi. Left kidney: 12.4 x 5.2 x 5.5 cm. There is minimal hydronephrosis. A 7 mm calculus is noted in the midportion. Bladder: 41 mL, incompletely distended. Jets were identified. IMPRESSION: 1. Left renal calculus 2. Mild left hydronephrosis; possibility of left ureteral calculus should be considered. 3. Normal right kidney
[2019-07-14] MEDS ORDERED: HYDROCODONE/ACETAMINOPHEN 5-325 MG (6 TAB/ER DISP) PO PRN (00:11)
[2019-07-14] MEDS ORDERED: ONDANSETRON ODT 4 MG TAB (6 TAB/ER DISP) PO PRN (00:12)
[2019-07-14 00:35] VITALS: BP 139/81
== END 2019-07-14 00:35 | disposition home or self-care (01) ==
LOC: ER 20:32
DX: R10.9 Unspecified abdominal pain (principal); N13.30 Unspecified hydronephrosis; R11.2 Nausea with vomiting, unspecified; R10.30 Lower abdominal pain, unspecified; R10.819 Abdominal tenderness, unspecified site; R82.71 Bacteriuria; I10 Essential (primary) hypertension; Z79.899 Other long term (current) drug therapy
CPT/HCPCS: 96376; 99284; 96361; 96374; 96375; 36415; 87086; 85025; 81025; 80053; 81001; 76770; J1885; J1170 ×2; J2405; J7030

== ENCOUNTER 2019-08-12 23:59 | Emergency (ER) | payer BC ==
--- NOTE | 2019-08-13 01:10 | RADIOLOGY REPORT (SQ) ---
EXAM: XR CHEST 1 VIEW CLINICAL INDICATION: 49-year-old female with chest pain. TECHNIQUE: Single view, AP portable chest was obtained. COMPARISON: 01/16/2016. FINDINGS: Unremarkable cardiac and mediastinal silhouette. Heart size is normal. Low lung volumes grossly clear without focal opacity, pneumothorax or pleural effusions. Elevation of the RIGHT hemidiaphragm. The visualized bones are within normal limits. IMPRESSION: No acute cardiopulmonary abnormalities.
[2019-08-13 01:11] LABS: HEMATOCRIT 41.1 % (36.0-47.0); HEMOGLOBIN 13.7 g/dL (12.0-15.5); MEAN CORPUSCULAR HEMOGLOBIN 27.6 pg (27.0-33.4); MEAN CORPUSCULAR HGB CONC 33.3 g/dL (32.0-36.0); MEAN CORPUSCULAR VOLUME 83 fl (80-97); PLATELET COUNT 349 10^3/uL (150-450); RED BLOOD COUNT 4.96 10^6/uL (3.72-5.28); RED CELL DISTRIBUTION WIDTH 13.8 % (11.5-14.0); WHITE BLOOD COUNT 21.7 10^3/uL (4.0-10.5)
[2019-08-13 01:19] LABS: ALKALINE PHOSPHATASE 123 U/L (38-126); ANION GAP 14 (5-19); ASPARTATE AMINO TRANSFERASE 96 U/L (14-36); BILIRUBIN,DIRECT 0.2 mg/dL (0.0-0.4); BILIRUBIN,TOTAL 1.3 mg/dL (0.2-1.3); BLOOD UREA NITROGEN 12 mg/dL (7-20); CALCIUM 9.6 mg/dL (8.4-10.2); CARBON DIOXIDE 24 mmol/L (22-30); CHLORIDE 101 mmol/L (98-107); GLUCOSE 120 mg/dL (75-110); POTASSIUM 4.1 mmol/L (3.6-5.0)
[2019-08-13 01:46] LABS: ABSOLUTE LYMPHOCYTES# (MANUAL) 2.8 10^3/uL (0.5-4.7); ABSOLUTE MONOCYTES # (MANUAL) 0.4 10^3/uL (0.1-1.4); BASOPHILS % (MANUAL) 0 % (0-2); EOSINOPHILS % (MANUAL) 0 % (0-6); LYMPHOCYTES % (MANUAL) 13 % (13-45); MONOCYTES % (MANUAL) 2 % (3-13); SEGMENTED NEUTROPHILS % (MAN) 85 % (42-78); TOTAL CELLS COUNTED 100
[2019-08-13 01:48] LABS: PLATELET COMMENT ADEQUATE; RBC MORPHOLOGY COMMENT NORMO-CYTIC/CHROMIC; TOXIC GRANULATION SLIGHT
[2019-08-13] MEDS ORDERED: CEFTRIAXONE 1 GM/D5W RTU 1 GM/50 ML RTUPB IV ONE (01:59)
[2019-08-13] MEDS ORDERED: DOXYCYCLINE HYCLATE 100 MG TABLET PO ONE (01:59)
--- NOTE | 2019-08-13 01:59 | ER Document Report ---
ED General - General Chief Complaint: Chest Pressure Stated Complaint: CHEST PAIN Time Seen by Provider: 08/13/19 01:41 Primary Care Provider: TOBY HELM MD [Primary Care Provider] - Follow up in 3-5 days Notes: Patient is a 49-year-old female that comes emergency department for chief complaint of fever, cough, pressure across her chest, congestion in her nose, sinuses, and chest, and occasional shortness of breath. She states she feels like she was wheezing previously. She states that after arrival she had a coughing episode where she coughed up a lot of mucus and now her chest feels much improved. She denies vomiting, diarrhea. She states she took Aleve for fever greater than 101 prior to arrival. Her influenza is up-to-date. She denies smoking, COPD or asthma. Past medical history includes hypertension, kidney stones. She states she recently has passed a kidney stone. She denies dysuria or flank pain. TRAVEL OUTSIDE OF THE [place] IN LAST 30 DAYS: No - Related Data Allergies/Adverse Reactions: No Known Allergies Allergy (Verified 07/13/19 20:49) Home Medications: benicar, metoprolol Past Medical History - General Information source: Patient - Social History Smoking Status: Never Smoker Frequency of alcohol use: None Drug Abuse: None Lives with: Family Family History: Reviewed & Not Pertinent, Other - Kidney stone Patient has suicidal ideation: No Patient has homicidal ideation: No - Past Medical History Cardiac Medical History: Reports: Hx Hypertension Pulmonary Medical History: Reports: Hx Pneumonia Renal/ Medical History: Reports: Hx Kidney Stones. Denies: Hx Peritoneal Dialysis Psychiatric Medical History: Reports: Hx Anxiety, Hx Depression - anxiety Past Surgical History: Reports: Hx Kidney (Renal Surgery) - lithotripsy - Immunizations Hx Diphtheria, Pertussis, Tetanus Vaccination: Yes Review of Systems - Review of Systems Constitutional: See HPI EENT: No symptoms reported Cardiovascular: No symptoms reported Respiratory: See HPI Gastrointestinal: No symptoms reported Genitourinary: No symptoms reported Female Genitourinary: No symptoms reported Musculoskeletal: No symptoms reported Skin: No symptoms reported Hematologic/Lymphatic: No symptoms reported Neurological/Psychological: No symptoms reported Physical Exam - Vital signs Vitals: Temp Pulse Resp BP Pulse Ox 99.0 F 108 H 24 H 149/99 H 96 08/13/19 00:03 08/13/19 00:03 08/13/19 00:03 08/13/19 00:03 08/13/19 00:03 - Notes Notes: GENERAL: Alert, interacts well. No acute distress. HEAD: Normocephalic, atraumatic. EYES: Pupils equal, round, and reactive to light. Extraocular movements intact. ENT: Oral mucosa moist, tongue midline. Oropharynx unremarkable. Airway patent. Mild sinus congestion without sinus tenderness NECK: Full range of motion. Supple. Trachea midline. LUNGS: Scattered coarse breath sounds but no wheezes, no tachypnea, no rhonchi or rales. No respiratory distress. Occasional coughing episodes. HEART: Regular rate and rhythm. No murmur ABDOMEN: Soft, non-tender. Non-distended. EXTREMITIES: Moves all 4 extremities spontaneously. No edema, normal radial and dorsalis pedis pulses bilaterally. No cyanosis. BACK: no cervical, thoracic, lumbar midline tenderness. No saddle anesthesia, normal distal neurovascular exam. Moves all extremities in full range of motion. NEUROLOGICAL: Alert and oriented x3. Normal speech. Cranial nerves II through XII grossly intact. PSYCH: Normal affect, normal mood. SKIN: Warm, dry, normal turgor. No rashes or lesions noted. Course - Re-evaluation Re-evalutation: Patient with some sinus congestion which is mild, frequent congested cough. Patient states she was wheezing previously but she is not now. Oxygen is slightly borderline, she is not tachycardic, blood pressure unremarkable, no current fever but she states she self treated before arrival. Chest x-ray unremarkable, troponin negative, chemistry nonspecific. CBC shows leukocytosis at greater than 20,000. I discussed with patient. Patient ambulated without difficulty, lowest oxygen saturation was 91% and patient did not have significant tachycardia or dyspnea. She states she feels comfortable going home. Because of her leukocytosis, reported fever, worsening cough, patient will be covered for suspected underlying pneumonia, given Rocephin and doxycycline now and she will be on this at home. She was given dexamethasone because she states she does not want to take oral steroids and she was reportedly wheezing with cough prior to arrival. Provided with work-release, discussed follow-up, discussed strict return precautions. Patient states appreciation and agreement. Stable time of discharge. - Vital Signs Vital signs: Temp Pulse Resp BP Pulse Ox 98.5 F 108 H 16 131/85 H 97 08/13/19 03:57 08/13/19 00:03 08/13/19 03:57 08/13/19 03:57 08/13/19 03:57 - Laboratory Result Diagrams: 08/13/19 00:48 08/13/19 00:48 Laboratory results interpreted by me: 08/13/19 08/13/19 08/13/19 00:40 00:48 00:48 WBC 21.7 H Seg Neuts % (Manual) 85 H Monocytes % (Manual) 2 L Abs Neuts (Manual) 18.4 H Est GFR (MDRD) Non-Af 51 L Glucose 120 H AST 96 H Urine Blood SMALL H Discharge - Discharge Clinical Impression: Productive cough Fever Qualifiers: Fever type: unspecified Qualified Code(s): R50.9 - Fever, unspecified Leukocytosis Qualifiers: Leukocytosis type: unspecified Qualified Code(s): D72.829 - Elevated white blood cell count, unspecified Condition: Stable Disposition: HOME, SELF-CARE Additional Instructions: Your evaluation indicates a viral upper respiratory infection but I am also concerned about an underlying developing pneumonia. Take the antibiotics to completion, drink plenty of fluids and rest. You can take zghe-[id number] remedies such as decongestants, antihistamines, Tylenol and ibuprofen. Symptoms should gradually resolve. Follow-up with primary care for additional evaluation and management. Return if you worsen including difficulty breathing, spiking fevers, vomiting, or any other concerning or worsening symptoms. Prescriptions: Doxycycline Hyclate 100 mg PO BID #14 capsule Forms: Return to Work Referrals: TOBY HELM MD [Primary Care Provider] - Follow up in 3-5 days
[2019-08-13 03:23] LABS: APPEARANCE,URINE CLEAR; BILIRUBIN,URINE NEGATIVE (NEGATIVE); COLOR,URINE STRAW; GLUCOSE, URINE NEGATIVE (NEGATIVE); KETONES,URINE NEGATIVE (NEGATIVE); LEUKOCYTE ESTERASE,URINE NEGATIVE (NEGATIVE); NITRITE,URINE NEGATIVE (NEGATIVE); PROTEIN,URINE NEGATIVE (NEGATIVE); URINE SPECIFIC GRAVITY 1.003; UROBILINOGEN,URINE NEGATIVE mg/dL (<2.0)
[2019-08-13] MEDS ORDERED: DEXAMETHASONE SOD PHOS INJ 10 MG/1 ML VIAL IV ONE (03:32)
[2019-08-13 04:02] VITALS: BP 131/85
--- NOTE | 2019-08-13 06:44 | EKG REPORT ---
SEVERITY:- ABNORMAL ECG - SINUS TACHYCARDIA RIGHT AXIS DEVIATION NONSPECIFIC ST-T CHANGES DIFFUSE : Confirmed by: Julio Cesar Parham MD 13-Aug-2019 06:44:01
== END 2019-08-13 04:06 | disposition home or self-care (01) ==
LOC: ER 23:59
DX: R05 Cough (principal); R50.9 Fever, unspecified; R07.89 Other chest pain; R09.81 Nasal congestion; R09.89 Other specified symptoms and signs involving the circulatory and respiratory systems; R06.02 Shortness of breath; D72.829 Elevated white blood cell count, unspecified; Z79.899 Other long term (current) drug therapy; I10 Essential (primary) hypertension
CPT/HCPCS: 93005; 36415; 87040; 85025; 80053; 81001; 84484; 71045; 93010; J0696; J1100; 96365; 96375; 99285